=== PATIENT | female | born 1995 | race Caucasian/White ===

== ENCOUNTER 2025-05-03 22:41 | Emergency (ER) | payer SELFPAY ==
[2025-05-03 22:47] VITALS: BP 140/82
[2025-05-03] MEDS: VERSED 5 MG IM (23:09)
[2025-05-03] MEDS: HALDOL 5 MG IM (23:09)
--- NOTE | 2025-05-03 23:20 | ED.GENMED ---
History of Present Illness
General
Chief Complaint: Crisis Evaluation
Source: patient and police
Exam Limitations: clinical condition
Time Seen by Provider: 05/03/25 22:43
History of Present Illness
History of Present Illness:
Note:
CHIEF COMPLAINT(S)
Agitation and suicidal ideation.
HISTORY OF PRESENT ILLNESS
The patient is a 29-year-old female who presented with symptoms of extreme agitation and distress. According to the recounting of individuals present, she was encountered at a hotel where she was observed screaming, kicking, and displaying
significant agitation. The police were called due to her behavior. When confronted, she expressed suicidal ideation, reportedly asking the officers to kill her.
During the incident, she attempted to step onto a ledge near a canal, indicating a risk of self-harm, and required intervention to prevent further escalation. It was noted that she repeatedly expressed a wish for .
She mentioned being , adding another dimension to her mental health and overall situation. There is no clear information regarding her current residential status or support system.
PHYSICAL EXAM
General: Alert but agitated
Skin: Warm, dry.
Head: Normocephalic, atraumatic.
Neck: Supple, trachea midline.
Eye Ears, nose, mouth and throat: Oral mucosa moist.
Cardiovascular: Normal peripheral perfusion, no edema.
Respiratory: Respirations are non-labored.
Gastrointestinal: Abdomen nondistended.
Back: Normal range of motion, normal alignment.
Musculoskeletal: Normal range of motion, normal strength.
Neurological: Alert and oriented to person, no focal neurological deficit observed.
Psychiatric: Patient is cooperative at times, speech is somewhat pressured. Agitated. Poor insight. Poor judgment
PROBLEM LIST
Acute:
- Agitation
- Suicidal ideation
- (self-reported)
PLAN
Administer medications to manage agitation, specifically 5 mg of Haldol and 5 mg of Versed to provide sedation or chemical restraint as necessary. Close monitoring due to expressed suicidal ideations and conduct further psychiatric evaluation.
Confirm the status and ensure appropriate care if confirmed. Ensure patient safety and consider a psychiatric hold for evaluation due to the risk of self-harm.
DIFFERENTIAL DIAGNOSIS
The Differential Diagnosis includes, in no particular order and is not limited to:
1. Acute stress disorder
2. Schizophrenia or other primary psychotic disorders
3. Bipolar disorder, manic episode
4. Substance-induced psychotic disorder
5. Major depressive disorder with psychotic features
6. Borderline personality disorder with acute crisis
7. Delirium due to medical condition
8. Post-traumatic stress disorder
9. Anxiety disorder with panic features
10. -related mood disorder
Disposition:
SUMMARY OF ENCOUNTER
The patient, a 29-year-old female, was seen in the emergency department for extreme agitation and manic behavior. Analysis included toxicology screening which revealed an alcohol level of 191 mg/dL. Other laboratory tests showed normal acetaminophen
and salicylate levels, normal comprehensive metabolic panel results except for mild hypokalemia at 3.1 mmol/L, and normal liver function tests. Despite her initial severe agitation, she was administered haloperidol (Haldol) and midazolam, which
helped stabilize her condition. A test was negative. Given her significant distress and risk of harm to herself, a 302 involuntary commitment was filed for psychiatric evaluation.
DISPOSITION
Involuntary commitment filed.
ASSESSMENT
This patient presented with acute agitation and manic behavior likely exacerbated by alcohol intoxication. Her condition warranted immediate sedation to prevent self-harm and stabilize her mental state.
EMERGENCY TREATMENTS ADMINISTERED
Haloperidol and midazolam were administered to manage her significant agitation.
PLAN
The patient is to be held under involuntary commitment for psychiatric evaluation due to risk of self-harm. Monitor and manage mild hypokalemia as necessary. Continue observation and initiate further psychiatric treatment as needed once admitted.
INDEPENDENT REVIEW OF LABS AND INTERPRETATION OF TESTS
My independent review of CMP indicates mild hypokalemia at 3.1 mmol/L, with normal sodium levels at 139 mmol/L, and no anion gap. LFTs are normal. test is negative.
MEDICAL DECISION MAKING
1. Number and Complexity of Problems Addressed: Chronic conditions affecting care include the patients acute agitation and potential alcohol intoxication. Differential diagnosis includes acute stress disorder, schizophrenia or other primary
psychotic disorders, bipolar disorder manic episode, substance-induced psychotic disorder, major depressive disorder with psychotic features, borderline personality disorder with acute crisis, delirium due to a medical condition, post-traumatic
stress disorder, anxiety disorder with panic features, and -related mood disorder.
2. Data:
Category 1: Tests and documents include my independent review of the labs that showed an alcohol level of 191 mg/dL, normal acetaminophen and salicylate levels, normal sodium, mild hypokalemia, normal creatinine, and normal liver function tests.
Category 3: Discussion involved filing a 302 for involuntary commitment for the safety of the patient and to facilitate appropriate psychiatric evaluation and treatment.
DIAGNOSIS
- Acute agitation with manic behavior, possibly related to alcohol intoxication (F10.229)
- Mild hypokalemia (E87.6)
Phy Exam
Physical Exam
Physical Exam:
.
Course
Orders/Labs/Results
Orders:
Orders
05/03/25 22:52
Haloperidol Lactate [Haldol] 5 mg IM NOW STA
Midazolam HCl [Versed] 5 mg .ROUTE .STK-MED ONE
Midazolam HCl [Versed] 5 mg IM NOW STA
05/03/25 22:53
Urine Drug Abuse Screen Urgent
Test Result ONCE
05/03/25 23:11
Crisis Consult Urgent
Reason for Consult: appears manic, making no sense
05/03/25 23:24
Acetaminophen Urgent
Alcohol Urgent
Complete Blood Count/With Diff Urgent
Comprehensive Metabolic Panel Urgent
HCG, Serum Qualitative Screen Urgent
Salicylate Urgent
05/04/25 00:58
ED Special Safety Observation ONCE
Observation level: One to Two
Abnormal Lab Results
05/03/25
23:24
Hgb 10.7 L g/dL
(12.0-16.0)
Hct 33.6 L %
(37.0-47.0)
MCV 66.4 L fL
(81.0-99.0)
MCH 21.1 L pg
(27.0-31.0)
MCHC 31.8 L g/dL
(33.0-37.0)
RDW 14.9 H %
(11.5-14.5)
Potassium 3.1 L mmol/L
(3.5-5.1)
Chloride 109 H mmol/L
(98-107)
Carbon Dioxide 20 L mmol/L
(22-30)
Glucose 101 H mg/dl
(70-99)
Salicylates < 1.0 L mg/dl
(2.0-20.0)
Acetaminophen < 10 L ug/ml
(10-30)
05/03/25 23:24
05/03/25 23:24
Vital Signs
Initial and Last Documented VS:
Initial Vital Signs
Temp Pulse Resp BP Pulse Ox
98.1 F 120 18 140/82 99
05/03/25 22:47 05/03/25 22:47 05/03/25 22:47 05/03/25 22:47 05/03/25 22:47
Last Documented Vital Signs
Temp Pulse Resp BP Pulse Ox
98.1 F 65 19 102/61 100
05/03/25 22:47 05/04/25 01:45 05/04/25 01:45 05/04/25 01:25 05/04/25 01:20
*Pulse Oximetry
SaO2: 99
Oxygen Mode of Delivery: Room air
Patient hypoxic: no
*Critical Care Note
Total Time (30-74mins, 75-104mins- exclusive of procedures): 35 minutes
ED Attending Note
-
Portions of this chart may have been created with voice recognition software.� Occasional wrong word or��sound alike� substitutions may have occurred due to the inherent limitations of voice recognition software.
Discharge Plan
Departure
Patient Disposition: Psych Facility
Date of Disposition: 05/03/25
Time of Disposition: 23:21
Discharge Problem:
Acute psychosis, acute marianna
Interventions
Interventions:
*Risk Screen - Suicide Last Done: 05/03/25 23:10
*General Assessment Last Done: 05/03/25 23:10
*Neglect/Abuse Screening Last Done: 05/03/25 23:10
*ED- Fall Risk Assessment Last Done: 05/03/25 23:10
*ED COVID-19 Vaccine History Last Done: 05/03/25 23:10
ED-Psychological Assessment Last Done: 05/03/25 23:10
Discharge Date and Time
Print Language: SLOVENIAN
[2025-05-03 23:21] VITALS: BP 111/78
[2025-05-03 23:38] LABS: Hematocrit 33.6 % (37.0-47.0); Hemoglobin 10.7 g/dL (12.0-16.0); Mean Corp Hgb Conc. 31.8 g/dL (33.0-37.0); Mean Corpuscular Volume 66.4 fL (81.0-99.0); Nucleated Red Blood Cells % 0 %; Platelet Count 306 10^3/uL (130-400); Red Cell Dist. Width 14.9 % (11.5-14.5)
[2025-05-03 23:50] LABS: HCG, Serum Qualitative Screen Negative
[2025-05-03 23:58] LABS: ALT (SGPT) 19 U/L (0-35); AST (SGOT) 33 U/L (14-36); Acetaminophen < 10 ug/ml (10-30); Albumin 4.4 g/dl (3.5-5.0); Alkaline Phosphatase 59 U/L (38-126); Blood Urea Nitrogen 10 mg/dl (7-17); Calcium 9.5 mg/dl (8.4-10.2); Carbon Dioxide 20 mmol/L (22-30); Chloride 109 mmol/L (98-107); Glucose 101 mg/dl (70-99); Potassium 3.1 mmol/L (3.5-5.1); Salicylate < 1.0 mg/dl (2.0-20.0); Sodium 139 mmol/L (135-145); Total Protein 7.6 g/dl (6.3-8.2); eGFR > 60.00
[2025-05-04] VITALS: BP 108/76
[2025-05-04 01:00] VITALS: BP 98/73
[2025-05-04 01:25] VITALS: BP 102/61
--- NOTE | 2025-05-04 06:30 | ED.CRISIS ---
ED Crisis Note
ED Crisis Note
Subjective:
The patient had been agitated
Objective:
The patient was given Versed and Haldol earlier
Assessment/Plan:
I discussed case with crisis. They recommend psychiatric consultation. I have placed this order for Dr. Hylton.
I spoke to jennifer psych - he saw at bedside. I have ordered 5mg IM Haldol at his recommendation
Plan is for transfer to [facility] ([facility]) under 302 at 12:30pm
[2025-05-04 07:31] VITALS: BMI 26.8
[2025-05-04 09:40] VITALS: BP 136/85
--- NOTE | 2025-05-04 09:48 | EDRN ---
correction worker Darrion was in to inform pt that she is going to [facility] soon. Pt became agitated and nervous and anxious. Darrion asked Dr. Wolf for medication prior to pt leaving. pt is scheduled to leave at 10:10 via [facility].
--- NOTE | 2025-05-04 09:53 | EDRN ---
Pt is unable to go to [facility] at this time as pt has a [place] address so transfer at this time on hold, waiting to find acceptance to another facility.
--- NOTE | 2025-05-04 10:11 | EDRN ---
Pt resting comfortably at this time. Pt calm and cooperative. As pt not going to [facility], am not medicating pt unless needed w/ the xanax. Notified Dr. Wolf via TT.
--- NOTE | 2025-05-04 10:38 | EDRN ---
Pt is now going to [facility] at 13:00 [place] via [facility].
--- NOTE | 2025-05-04 12:23 | CON.MD ---
Addendum entered and electronically signed by Evan Killian MD 05/04/25 15:27:
met with family. they state pt has been more and more odd over past three weeks, posting bizarre things online. has blocked mother from contact, enamored of boyfirend. He had spoken with her yesterday, became alarmed at how she sounded, reached out
to pt's sister who then alerted rest of family. No prior inpatient care that they know of, but has been living in [place] for some time. Mother had been called [facility] [employer], who I called. [phone]. She had been prescribing
bupriopion and Qelbree (viloxazine, non-stimulant ADHD med) since spring. Pt had gone to her office very manic at the beginning of March; ASSEM[employer]IVER took away her car keys, sent her in Uber to her mother's house, called in risperdal, lamictal and ativan
for her. Pt called her back a few days later and fired her 'for sending me to that homophobic household.'
Mother also states that mother's younger sister has bipolar disorder, in treatment.
Original Note:
Consultation - Medical
-
pt seen by me, chart reviewed.
302 filed by police after she was noted to be agitated at a hotel. Police assistance required to get her to [facility]; had tried to jump into canal indicating she wanted to , asking police to kill her. Was wildly out of control
requiring physical restraint, had iv haldol and versed.
Today patient is calmer, able to give some history though labile and focused on getting phone number for boyfriend
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 Says she is currently hiding from her family so she can study for
the LSAT to apply to law school.. Acknowledges prior history of treatment with antidepressants, but says her mother (RN) told her that antidepressants change your brain so she stopped.
Identifies as queer, has boyfriend to please family (cannot say what relationship is with him). Has been living off savings, has lease in apt in [facility] starting in July.
Pt is labile, animated, tearful at times, grandiose. No signs of cognitive impairment.
labs notable for K of 3.1, uds positive for cannabis
Impression: Gracie
Has bed secured at [facility]. Will give another dose of haloperidol prior to transport, along with benadryl
will attempt to reach out to family, though pt reluctant to give numbers.
[2025-05-04] MEDS: HALDOL 5 MG IM (12:36)
[2025-05-04] MEDS: XANAX 1 MG PO (12:45)
== END 2025-05-04 12:50 ==
LOC: EMR 22:41
PROVIDERS: CONSULT PHYSICIAN Psychiatry & Neurology Psychiatry; EMERGENCY PHYSICIAN Emergency Medicine
DX: F23 Brief psychotic disorder (principal); F30.9 Manic episode, unspecified; R45.851 Suicidal ideations; E87.6 Hypokalemia; T43.206A Underdosing of unspecified antidepressants, initial encounter; Z91.128 Patient's intentional underdosing of medication regimen for other reason; Z81.8 Family history of other mental and behavioral disorders
CPT/HCPCS: 99285; 96372 ×3; 80053; 80143; 80179; 80306; 82077; 84703; 85025